=== PATIENT | male | born 1940 | race Caucasian/White ===

== ENCOUNTER 2020-12-20 17:45 | Inpatient (IN) | payer OTHER, MEDICARE ==
[2020-12-20 18:50] LABS: Basophils % 0.5 % (0-1.3); Hematocrit 44.8 % (39.6-49.0); Lymphocytes % 10.5 % (15.3-44.8); MPV 7.6 fL (7.6-11.3); RBC Red Blood Cell Count 4.85 M/uL (4.33-5.43)
[2020-12-20 19:05] LABS: Albumin 3.7 g/dL (3.4-5.0); Bilirubin Direct 0.3 mg/dL (0-0.2); Bilirubin Total 0.9 mg/dL (0.2-1.0); Potassium 3.9 mmol/L (3.5-5.1); Protein, Total 7.2 g/dL (6.4-8.2)
[2020-12-20 19:23] LABS: Urine Bacteria <20 /HPF (NONE SEEN); Urine RBC TNTC /HPF (NONE SEEN)
[2020-12-20] MEDS ORDERED: CEFTRIAXONE/SWI 1gm 1 GM/10 ML SYR ONE (20:23)
[2020-12-20] MEDS ORDERED: NA CHLORIDE 0.9% 50 ML ONE (20:23)
--- NOTE | 2020-12-20 20:45 | ER ---
Nurse's Notes [facility] Name: Tony Vazquez Age: 80 yrs Sex: Male : 1940 Arrival Date: 12/20/2020 Time: 18:16 Bed 5 Private MD: Diagnosis: Hematuria, unspecified;Retention of urine, unspecified;Lower abdominal pain, unspecified Presentation: 12/20 18:18 Chief complaint: Patient states: Prostate bleeding starting this morning at 0700. Pt kg stated, "I tried to go to the restroom and it started bleeding, this has happened before but lasted a day or two and stopped on its own." Pt was scheduled for prostate sx tomorrow but pt canceled it because he wanted cataract sx done first. Coronavirus screen: Client denies travel out of the [place] in the last 14 days. At this time, unable to obtain information related to travel outside the [place] At this time, the client does not indicate any symptoms associated with coronavirus-19. Ebola Screen: Patient negative for fever greater than or equal to 101.5 degrees Fahrenheit, and additional compatible Ebola Virus Disease symptoms Patient denies exposure to infectious person. Patient denies travel to an Ebola-affected area in the 21 days before illness onset. Initial Sepsis Screen: Does the patient meet any 2 criteria? No. Patient's initial sepsis screen is negative. Does the patient have a suspected source of infection? No. Patient's initial sepsis screen is negative. Risk Assessment: Do you want to hurt yourself or someone else? Patient reports no desire to harm self or others. 18:18 Method Of Arrival: Wheelchair kg 18:18 Acuity: KATHERYN 3 kg 18:18 Onset of symptoms was December 20, 2020 at 07:00. kg Triage Assessment: 18:24 General: Appears in no apparent distress. Behavior is calm, cooperative, appropriate kg for age, quiet. Pain: Denies pain. Historical: - Allergies: 18:24 No Known Allergies; kg - Home Meds: 18:24 Flomax Oral [Active]; Furosemide Oral [Active]; kg - PMHx: 18:24 Atrial Fib; protaste enlargement; kg - PSHx: 18:24 hernia; zain shoulder sx; Right ankle SX; Greenlight laser prostatectomy; kg - Immunization history:: Adult Immunizations not up to date, Client reports receiving the 1st dose of the Covid vaccine, September 2020 [employer]. Pt stated he had a reaction and didn't get the second dose. . - Social history:: Smoking status: Patient denies any tobacco usage or history of. Patient uses alcohol, on a daily basis. Screenin:05 Abuse screen: Denies threats or abuse. Nutritional screening: No deficits noted. em Tuberculosis screening: No symptoms or risk factors identified. Fall Risk None identified. Assessment: 19:30 General: Appears in no apparent distress. uncomfortable, Behavior is calm, cooperative, em appropriate for age. Pain: Complains of pain in suprapubic area Quality of pain is described as pressure. Neuro: Level of Consciousness is awake, alert, obeys commands, Oriented to person, place, time, situation, Appropriate for age. Cardiovascular: Capillary refill < 3 seconds Patient's skin is warm and dry. Respiratory: Airway is patent Respiratory effort is even, unlabored, Respiratory pattern is regular, symmetrical. : Reports inability to void, blood in urine. Derm: Skin is intact, is fragile, is thin, Skin is pink, warm \\T\\ dry. Musculoskeletal: Capillary refill < 3 seconds, Range of motion: intact in all extremities. 21:57 Reassessment: Patient appears in no apparent distress at this time. Patient and/or em family updated on plan of care and expected duration. Pain level reassessed. Patient is alert, oriented x 3, equal unlabored respirations, skin warm/dry/pink. Patient states feeling better. Patient states symptoms have improved. 12/21 00:00 Reassessment: Patient appears in no apparent distress at this time. Patient and/or em family updated on plan of care and expected duration. Pain level reassessed. Patient is alert, oriented x 3, equal unlabored respirations, skin warm/dry/pink. Patient denies pain at this time. Patient states feeling better. Vital Signs: 12/20 18:18 BP 143 / 85; Pulse 100; Resp 20; Pulse Ox 98% on R/A; Weight 95.25 kg (R); Height 6 ft. kg 0 in. (182.88 cm); Pain 0/10; 21:57 BP 130 / 79; Pulse 87; Resp 18; Pulse Ox 99% on R/A; Pain 0/10; em 23:00 BP 130 / 75; Pulse 84; Resp 16; Pulse Ox 99% on R/A; em 18:18 Body Mass Index 28.48 (95.25 kg, 182.88 cm) kg ED Course: 18:16 Patient arrived in ED. ds1 18:24 Triage completed. kg 18:24 Arm band placed on left wrist. kg 18:45 Initial lab(s) drawn, by nd, sent to lab. Urine collected: clean catch specimen, blood kj1 tinged. Inserted saline lock: 20 gauge in right antecubital area, using aseptic technique. Blood collected. 19:05 Patient has correct armband on for positive identification. Placed in gown. Bed in low em position. Call light in reach. Side rails up X2. Pulse ox on. NIBP on. 19:21 Rodrigue Wiseman MD is Attending Physician. [facility] 19:23 Bladder scan completed. 704 post-void. em 19:39 Brayan Guevara, RN is Primary Nurse. em 20:43 Fred Mcclain MD is Hospitalizing Provider. [facility] 21:00 3-way catheter inserted, using sterile technique, 22 Fr. Specimen obtained. 12/21 01:18 No provider procedures requiring assistance completed. Patient admitted, IV remains in em place. Administered Medications: 12/20 20:15 Drug: Rocephin (cefTRIAXone) 1 grams Route: IV; Rate: per protocol; Site: right em antecubital; Outcome: 20:44 Decision to Hospitalize by Provider. [facility] 12/21 01:18 Admitted to ER Hold. Please see [facility] for further documentation. em Condition: improved Instructed on the need for admit, Demonstrated understanding of instructions. 16:07 Patient left the ED. zb Signatures: Rodrigue Wiseman MD MD cha Munoz, Edgar, RN RN Beena Magana ds1 Noreen Michael kj1 Gudelia Luna RN RN zb Aimee Peguero RN RN kg
--- NOTE | 2020-12-20 20:45 | EDPHYS ---
Physician Documentation [facility] Name: Tony Vazquez Age: 80 yrs Sex: Male : 1940 Arrival Date: 12/20/2020 Time: 18:16 Bed 5 Private MD: YIN Physician Rodrigue Wiseman HPI: 12/20 20:33 This 80 yrs old Male presents to ER via Wheelchair with complaints of gross pattie hematuria. 20:33 The patient presents with urinary symptoms, urinary frequency. Onset: The pattie symptoms/episode began/occurred this morning. Modifying factors: The symptoms are alleviated by nothing, the symptoms are aggravated by nothing. Associated signs and symptoms: Pertinent positives: hematuria. Severity of symptoms: At their worst the symptoms were moderate, in the emergency department the symptoms are unchanged. The patient has experienced similar episodes in the past, several times. Historical: - Allergies: 18:24 No Known Allergies; kg - Home Meds: 18:24 Flomax Oral [Active]; Furosemide Oral [Active]; kg - PMHx: 18:24 Atrial Fib; protaste enlargement; kg - PSHx: 18:24 hernia; zain shoulder sx; Right ankle SX; Greenlight laser prostatectomy; kg - Immunization history:: Adult Immunizations not up to date, Client reports receiving the 1st dose of the Covid vaccine, September 2020 [employer]. Pt stated he had a reaction and didn't get the second dose. . - Social history:: Smoking status: Patient denies any tobacco usage or history of. Patient uses alcohol, on a daily basis. ROS: 20:34 Constitutional: Negative for fever, chills, and weight loss, Eyes: Negative for injury, pattie pain, redness, and discharge, ENT: Negative for injury, pain, and discharge, Neck: Negative for injury, pain, and swelling, Cardiovascular: Negative for chest pain, palpitations, and edema, Respiratory: Negative for shortness of breath, cough, wheezing, and pleuritic chest pain, Back: Negative for injury and pain, MS/Extremity: Negative for injury and deformity, Skin: Negative for injury, rash, and discoloration, Neuro: Negative for headache, weakness, numbness, tingling, and seizure, Psych: Negative for depression, anxiety, suicide ideation, homicidal ideation, and hallucinations, Allergy/Immunology: Negative for hives, rash, and allergies, Endocrine: Negative for neck swelling, polydipsia, polyuria, polyphagia, and marked weight changes, Hematologic/Lymphatic: Negative for swollen nodes, abnormal bleeding, and unusual bruising. 20:34 Abdomen/GI: Positive for abdominal pain, of the suprapubic area. Exam: 20:34 Constitutional: This is a well developed, well nourished patient who is awake, alert, pattie and in no acute distress. Head/Face: Normocephalic, atraumatic. Eyes: Pupils equal round and reactive to light, extra-ocular motions intact. Lids and lashes normal. Conjunctiva and sclera are non-icteric and not injected. Cornea within normal limits. Periorbital areas with no swelling, redness, or edema. ENT: Nares patent. No nasal discharge, no septal abnormalities noted. Tympanic membranes are normal and external auditory canals are clear. Oropharynx with no redness, swelling, or masses, exudates, or evidence of obstruction, uvula midline. Mucous membranes moist. Neck: Trachea midline, no thyromegaly or masses palpated, and no cervical lymphadenopathy. Supple, full range of motion without nuchal rigidity, or vertebral point tenderness. No Meningismus. Chest/axilla: Normal chest wall appearance and motion. Nontender with no deformity. No lesions are appreciated. Cardiovascular: Regular rate and rhythm with a normal S1 and S2. No gallops, murmurs, or rubs. Normal PMI, no JVD. No pulse deficits. Respiratory: Lungs have equal breath sounds bilaterally, clear to auscultation and percussion. No rales, rhonchi or wheezes noted. No increased work of breathing, no retractions or nasal flaring. Back: No spinal tenderness. No costovertebral tenderness. Full range of motion. Skin: Warm, dry with normal turgor. Normal color with no rashes, no lesions, and no evidence of cellulitis. MS/ Extremity: Pulses equal, no cyanosis. Neurovascular intact. Full, normal range of motion. Neuro: Awake and alert, GCS 15, oriented to person, place, time, and situation. Cranial nerves II-XII grossly intact. Motor strength 5/5 in all extremities. Sensory grossly intact. Cerebellar exam normal. Normal gait. Psych: Awake, alert, with orientation to person, place and time. Behavior, mood, and affect are within normal limits. 20:34 Abdomen/GI: Inspection: distension, that is mild, Bowel sounds: normal, Palpation: nontender, Liver: no appreciated palpable abnormalities, Hernia: not appreciated. 22:01 ECG was reviewed by the Attending Physician. [facility] Vital Signs: 18:18 BP 143 / 85; Pulse 100; Resp 20; Pulse Ox 98% on R/A; Weight 95.25 kg (R); Height 6 ft. kg 0 in. (182.88 cm); Pain 0/10; 21:57 BP 130 / 79; Pulse 87; Resp 18; Pulse Ox 99% on R/A; Pain 0/10; em 23:00 BP 130 / 75; Pulse 84; Resp 16; Pulse Ox 99% on R/A; em 18:18 Body Mass Index 28.48 (95.25 kg, 182.88 cm) kg MDM: 19:21 Patient medically screened. [facility] 20:42 Differential diagnosis: UTI, urinary retention, catheter problem. Data reviewed: [facility] vital signs, nurses notes, lab test result(s), EKG, radiologic studies, plain films. Data interpreted: chief orthoptist: rate is 100 beats/min, rhythm is regular. Test interpretation: by ED physician or midlevel provider: ECG, plain radiologic studies. Counseling: I had a detailed discussion with the patient and/or guardian regarding: the historical points, exam findings, and any diagnostic results supporting the discharge/admit diagnosis, lab results, radiology results. 12/20 18:30 Order name: Basic Metabolic Panel; Complete Time: 19:41 kg 12/20 18:30 Order name: CBC with Diff; Complete Time: 19:41 kg 12/20 18:30 Order name: Hepatic Function; Complete Time: 19:41 kg 12/20 18:30 Order name: Lipase; Complete Time: 19:41 kg 12/20 18:30 Order name: Type And Screen; Complete Time: 19:41 kg 12/20 18:47 Order name: Urine Culture bd 12/20 18:47 Order name: Urine Microscopic Only; Complete Time: 19:41 bd 12/20 20:26 Order name: ABO/RH no charge EDMS 12/20 20:55 Order name: Basic Metabolic Panel EDMS 12/20 20:55 Order name: Basic Metabolic Panel EDMS 12/20 20:55 Order name: CBC with Automated Diff EDID 12/20 20:55 Order name: CBC with Automated Diff EDID 12/20 20:56 Order name: COVID-19 : Document "Date of Symptom Onset" if Symptomatic. [facility] 12/20 23:41 Order name: SARS-COV-2 RT PCR EDID 12/20 18:30 Order name: IV Saline Lock; Complete Time: 18:50 kg 12/20 18:30 Order name: Labs collected and sent; Complete Time: 18:50 kg 12/20 19:44 Order name: Bladder Scanner; Complete Time: 20:15 [facility] 12/20 20:26 Order name: : [address]; Complete Time: 21:04 [facility] 12/20 20:55 Order name: CONS Physician Consult EDID 12/20 20:56 Order name: EKG; Complete Time: 20:56 [facility] 12/20 20:56 Order name: EKG - Nurse/Tech; Complete Time: 21:55 [facility] EC:01 Rate is 84 beats/min. Rhythm is regular. QRS [place] is Normal. NM interval is normal. QRS pattie interval is normal. QT interval is normal. No Q waves. T waves are Normal. No ST changes noted. Clinical impression: Normal ECG and No evidence of ischemia. Interpreted by me. Reviewed by me. Administered Medications: 20:15 Drug: Rocephin (cefTRIAXone) 1 grams Route: IV; Rate: per protocol; Site: right em antecubital; Disposition Summary: 12/20/20 20:44 Hospitalization Ordered Hospitalization Status: Observation pattie Provider: Fred Mcclain cha Condition: Stable ptatie Problem: new pattie Symptoms: have improved pattie Bed/Room Type: Standard pattie Location: Telemetry/MedSurg (observation)(12/21/20 12:10) bd Room Assignment: 222(12/21/20 12:10) bd Diagnosis - Hematuria, unspecified pattie - Retention of urine, unspecified pattie - Lower abdominal pain, unspecified pattie Forms: - Medication Reconciliation Form pattie - SBAR form pattie Signatures: Dispatcher [employer] EDShanel Enrique Corey, MD MD cha Munoz, Edgar RN Simin Nunez RN RN cg Graham, Kristen, RN RN kg Corrections: (The following items were deleted from the chart) 20:26 20:11 ordered. pattie pattie 22:53 20:44 Telemetry/MedSurg (observation) [facility] 20:44 [facility] 12/21 12:10 12/20 22:53 [facility] bd 12/21 12:12/20 22:53 [facility]
[2020-12-20] MEDS ORDERED: LIDOCAINE VISCOUS 2% SOLN 15 ML UDC ONE (20:48)
[2020-12-20] MEDS ORDERED: ONDANSETRON 4 MG/2 ML VIAL IV PRN (20:53)
[2020-12-20] MEDS ORDERED: ACETAMINOPHEN 500 MG TAB PO PRN (20:53)
[2020-12-20] MEDS ORDERED: MORPHINE 2 MG/ML SYR IV PRN (20:53)
[2020-12-20] MEDS ORDERED: CEFTRIAXONE 1 GM/NS 50 ML 1 GM/50 ML BAG IV SCH (21:00)
[2020-12-20] MEDS: FAMOTIDINE 20 MG/2 ML VIAL IV SCH (21:00)
[2020-12-20] MEDS: NA CHLORIDE 0.9% 1,000 ML IV SCH (21:00)
[2020-12-20] MEDS ORDERED: NACL 0.9% IRR SOLN 2,000 ML IRR ONE (21:09)
[2020-12-20] MEDS: CEFTRIAXONE/SWI 1gm 1 GM/10 ML SYR IV SCH (22:00)
[2020-12-20] MEDS ORDERED: NACL 0.9% IRR SOLN 4,000 ML IRR ONE (22:36)
[2020-12-21] MEDS ORDERED: NA CHLORIDE 0.9% 1,000 ML ONE (04:23)
[2020-12-21 04:32] LABS: Absolute Lymphocytes (CBC) 1.3 K/uL (0.7-4.9); Basophils % 0.3 % (0-1.3); Hematocrit 41.2 % (39.6-49.0); Lymphocytes % 16.4 % (15.3-44.8); MPV 7.6 fL (7.6-11.3); RBC Red Blood Cell Count 4.42 M/uL (4.33-5.43)
[2020-12-21 04:41] LABS: Potassium 3.8 mmol/L (3.5-5.1)
[2020-12-21 05:11] VITALS: BMI 28.5
[2020-12-21] MEDS: NA CHLORIDE 0.9% 1,000 ML IV SCH ×2 (07:00→16:43)
--- NOTE | 2020-12-21 07:31 | EKG ---
Test Date: 2020-12-20 Test Time: 21:18:19 Medical Research Tech: MARY MEASUREMENT RESULTS: Intervals: Rate: 84 LA: 182 QRSD: 86 QT: 386 QTc: 456 [place]: P: 32 LA: 182 QRS: 16 T: 48 INTERPRETIVE STATEMENTS: Normal sinus rhythm Normal ECG Compared to ECG 12/12/2020 10:56:49 No significant changes Electronically Signed On 12-21-20 07:30:57 CDT by Cecil Zepeda
[2020-12-21] MEDS ORDERED: NACL 0.9% IRR SOLN 0 ML IRR ONE (07:41)
[2020-12-21] MEDS: FAMOTIDINE 20 MG/2 ML VIAL IV SCH ×2 (09:00→21:33)
[2020-12-21] MEDS: CEFTRIAXONE/SWI 1gm 1 GM/10 ML SYR IV SCH ×2 (09:00→21:33)
[2020-12-21] MEDS ORDERED: NACL 0.9% IRR SOLN 2,000 ML IRR ONE ×4 (09:48→15:20)
[2020-12-21] MEDS ORDERED: CEFTRIAXONE/SWI 1gm 1 GM/10 ML SYR ONE (11:08)
[2020-12-21] MEDS ORDERED: FAMOTIDINE 20 MG/2 ML VIAL IV ONE (11:08)
--- NOTE | 2020-12-21 16:06 | CON ---
Reason For Consultation: Gross hematuria and urinary retention. History Of Present Illness: Mr. Vazquez is an 80-year-old gentleman with no documented significant past medical history, who underwent GreenLight photovaporization of his prostate by Dr. Tran several years ago, complicated at that time by bleeding, who now presents with persistent obstructive lower urinary symptoms, presumptively due to BPH, large volume, incomplete emptying of his bladder associated with left-sided hydronephrosis and intermittent gross hematuria without upper tract urothelial lesions seen on imaging or bladder tumor on outpatient cystoscopy. I had previously recommended he undergo bipolar transurethral resection of his prostate to manage the likely prostatic source of the bleeding, but also left retrograde pyelography and possible stent placement to manage the hydronephrosis, but because the patient had other plans as it relates to management of a cataract and some other social family issues, he canceled his surgery scheduled yesterday, 12/20/2020. Instead, he ended up with gross hematuria and clot retention that took him to the emergency department yesterday where a 22-Welsh 3-way catheter was placed. I was thus consulted to evaluate and manage the patient's gross hematuria and clot retention. On evaluation, the patient was well appearing and in no acute distress. He had no dyspnea or signs of respiratory distress. He was lying in the bed comfortably and a urethral catheter was in place with CBI with single lead tubing was attached, but was not actively dripping in due to obstruction of the infusion port of the catheter. As a result, I did the following procedure: Copious bladder irrigation Procedure note: I disconnected the catheter from its drainage tubing and then irrigated his bladder with over 2 L of normal saline until the majority of clots had been removed and returning efflux of urine was light pink to clear. I then flushed the infusion port site and removed the clot contained there. I then restored his continuous bladder irrigation with normal saline and set it up so that it remained light pink with moderate drip CBI. The patient was slated for transfer or inpatient management. Assessment And Recommendations: This is an 80-year-old gentleman with no known significant past medical history, who underwent GreenLight photovaporization of his prostate by Dr. Tran years ago complicated by bleeding at the time of that procedure, now with intermittent gross hematuria, clot retention, persistent obstructive lower urinary tract symptoms due to benign prostatic hypertrophy, and large volume incomplete emptying of his bladder associated with left-sided hydronephrosis and no upper tract urothelial lesions seen on imaging or bladder tumor on outpatient cystoscopy. -I recommend serial monitoring of his hematocrit at least once every 24 hours depending on the degree of gross hematuria. - I specifically explained and counseled the nurses in the emergency department about the need for maintaining continuous bladder irrigation with normal saline to prevent recurrence of clot related obstruction or distention of the bladder that could result in rupture. -Recommend IV antimicrobial therapy with ceftriaxone while urine culture, which hopefully was sent on his admission to the emergency department yesterday, is pending. Regardless, this will be of efficacy given the significant quantity of irrigation required to prevent infectious complication. - Continue CBI and attempt to wean. I will follow and if we are unable to appropriately wean the CBI off, the patient would then be arranged for urgent/emergent operative evaluation. Otherwise, we will plan to discharge him and get him back scheduled in the operating room as soon as possible for bipolar TURP and left retrograde pyelography, possible stent placement. Please note the time required for this consultation was over 50 minutes. CRISTINO/ANGELINA Voice ID: [id number] Report ID: [id number] BRANDYN
[2020-12-21] MEDS ORDERED: NACL 0.9% IRR SOLN 4,000 ML IRR ONE ×3 (16:22→22:31)
--- NOTE | 2020-12-21 19:42 | PN ---
Subjective: This is a followup consultation on the patient, well known to me with gross hematuria an d clot urinary retention requiring CBI. Please see prior consultation note for full recommendations. I reassessed the patient this evening and the CBI was at slow to moderate drip with urine from pink to light pink. The catheter was draining well without any signs of obstruction. The patient was co mpletely comfortable and feeling much better now than he was earlier. CBI titrated to keep the urine light pink. Recommendations: Nursing may manually irrigate the catheter with 60 mL catheter tip syringe and norm al saline q.4 hours and p.r.n. to remove any clots that may occur and form within the bladder and pot entially obstruct the catheter. Otherwise, continue to wean CBI to keep urine light pink to clear an d we will attempt to discontinue CBI as soon as possible, hopefully tomorrow. CRISTINO/ANGELINA Voice ID: [id number] Report ID: [id number]
--- NOTE | 2020-12-21 19:49 | HP ---
Date of Admission: 12/20/2020 Chief Complaint: Blood in urine. History Of Present Illness: An 80-year-old male patient, who started to have gross hematuria yesterd ay and this is painless hematuria. There is no burning on urination, no flank pain. He had some sup rapubic discomfort because he was not able to void for a while with this gross hematuria and once the catheter was placed in the emergency room and he started draining urine, his suprapubic discomfort g ot resolved. He denies any fever, chills, nausea, vomiting. After he was evaluated, he was admitted to the hospital. I saw him this morning. His son was present with him at bedside. Allergies: NO KNOWN ALLERGIES. Medications: Finasteride 5 mg daily and tamsulosin 0.4 mg daily. Review of Systems: Genitourinary: As mentioned above. All other systems reviewed and negative. Past Medical History: The patient had COVID-19 infection in April 19, 2020, gastroesophageal reflu x disease, benign prostatic hypertrophy, lumbar spondylosis, and prior history of gross hematuria few time and last episode was in June of this year. The patient also has chronic hydronephrosis of the left side and he has been under care of Dr. Camargo recently, who is planning to do surgery on . Past Surgical History: Significant for inguinal hernia repair and had a GreenLight procedure done on prostate for enlarged prostate in 2008, shoulder surgery, ankle surgery. Family History: Father at age 90 with old age and mother also at age 90 and had dementia. Social History: Prior history of smoking, not at present time. Use of alcohol 1 or 2 beers a few ti mes a week. Physical Examination: Vital Signs: Temperature 98.6, pulse 85, respiratory rate 16, blood pressure 132/78, oxygen saturati on 96%. Height 6 feet, weight 210 pounds. General: Awake, alert, oriented, not in distress. HEENT: Head atraumatic, normocephalic. Conjunctivae nonerythematous. Sclerae white. Mouth, no thr ush or edema noted. Ears/Nose, no mass, lesion, discharge noted. Neck: Supple. No JVD, lymph nodes, bruit, thyromegaly noted. Lungs: Bilateral good equal air entry. Clear to auscultation. No rhonchi. No rales. Heart: Normal heart sounds, no murmur or gallop. Abdomen: Soft, bowel sounds normal. No guarding, rigidity, tenderness, mass, hepatosplenomegaly, dis tention, or bruit noted. Extremities: No leg edema. No calf tenderness. Skin: No rash, ulcer, cellulitis. Lymphatics: No lymph node enlargement in neck, supraclavicular, infraclavicular region. Neuro: No focal neurological deficit. Chest: Unremarkable. External Genitalia: Deferred. Rectal: Deferred. Genitourinary: The patient has a catheter in place, draining grossly hemorrhagic urine in the F oley catheter bag. Laboratory Data: White count yesterday was 9.5, hemoglobin 15.3, platelets 151. This morning; white count 8.1, hemoglobin 14. Yesterday; sodium 132, potassium 3.9, chloride 98, bicarb 22, BUN 13, cre atinine 0.82, glucose 87. Liver function tests unremarkable. Lipase 77. This morning; sodium 140, potassium 3.8, chloride 107, bicarb 28, BUN 15, creatinine 0.86, glucose 90. Urinalysis, RBC TNTC, b acteria less than 20, WBC less than 5. COVID-19 test negative. EKG; normal sinus rhythm, no acute S T-T changes. Impression: 1.Gross hematuria. 2. . 3.Left-sided hydronephrosis, chronic. 4. . Plan: We will admit the patient to hospital for further evaluation and management of this problem. The patient is appropriate for inpatient and is expected to spend 2 midnights in hospital. We will c ontinue empiric antibiotic, continue bladder irrigation per order, and SCD was ordered for DVT prophy laxis. We will consult the patient's urologist, Dr. Velazquez, who was notified by ER physician eleanor harley and I also talked to him today and details were discussed with him. I will see the patient tomor row for followup and further plan . GAIL/MODL Voice ID: [id number]
[2020-12-22] MEDS: SODIUM CHL 0.9% IRR SOLN 2000 ML IRR SCH (00:44)
[2020-12-22] MEDS: NA CHLORIDE 0.9% 1,000 ML IV SCH ×2 (03:10→07:07)
[2020-12-22 08:16] LABS: Absolute Lymphocytes (CBC) 1.2 K/uL (0.7-4.9); Basophils % 0.4 % (0-1.3); Lymphocytes % 13.9 % (15.3-44.8); MPV 7.5 fL (7.6-11.3); RBC Red Blood Cell Count 3.63 M/uL (4.33-5.43)
[2020-12-22 08:30] LABS: BUN Blood Urea Nitrogen 10 mg/dL (7-18); Bicarbonate 25 mmol/L (21-32); Glucose Level 99 mg/dL (74-106); Magnesium 2.1 mg/dL (1.8-2.4); Potassium 3.8 mmol/L (3.5-5.1); Sodium Level 141 mmol/L (136-145)
[2020-12-22] MEDS: FAMOTIDINE 20 MG/2 ML VIAL IV SCH ×2 (08:30→21:04)
[2020-12-22] MEDS: CEFTRIAXONE/SWI 1gm 1 GM/10 ML SYR IV SCH ×2 (08:30→21:04)
[2020-12-22] MEDS ORDERED: CODEINE 30MG/APAP 300MG TAB PO PRN (21:01)
--- NOTE | 2020-12-23 01:03 | PN ---
Date of Progress Note: 12/22/2020 Subjective: The patient was seen this morning for followup. No new complaints or problems reported by him. Lying in bed, not in distress. Objective: Vital Signs: Reviewed. HEENT: Examination unremarkable. Lungs: Clear to auscultation. Heart: Sounds normal. Abdomen: Soft. Bowel sounds normal. No guarding, rigidity, tenderness, or distention. Extremities: No leg edema. Laboratory Data: Urine culture result is pending. Impression: 1.Gross hematuria. 2.Benign prostatic hypertrophy. 3.Chronic left-sided hydronephrosis. Plan: We will go ahead. Continue current empiric antibiotic, which is ceftriaxone. Reduce IV fluid to 50 cc/hour. The patient is on continuous bladder irrigation. We will continue that treatment pe greg Camargo and continue to follow up with him. We will repeat blood work tomorrow morning, and I will see him tomorrow for followup. GAIL/MODL Voice ID: [id number] Report ID: [id number]
[2020-12-23 05:31] LABS: Absolute Lymphocytes (CBC) 1.8 K/uL (0.7-4.9); Basophils % 0.9 % (0-1.3); Hematocrit 35.2 % (39.6-49.0); Lymphocytes % 20.3 % (15.3-44.8); MPV 7.7 fL (7.6-11.3); RBC Red Blood Cell Count 3.75 M/uL (4.33-5.43)
[2020-12-23 05:47] LABS: BUN Blood Urea Nitrogen 9 mg/dL (7-18); Bicarbonate 25 mmol/L (21-32); Glucose Level 101 mg/dL (74-106); Magnesium 2.2 mg/dL (1.8-2.4); Potassium 3.8 mmol/L (3.5-5.1); Sodium Level 142 mmol/L (136-145)
[2020-12-23] MEDS: NA CHLORIDE 0.9% 1,000 ML IV SCH (06:13)
[2020-12-23] MEDS: CEFTRIAXONE/SWI 1gm 1 GM/10 ML SYR IV SCH ×2 (09:44→21:26)
[2020-12-23] MEDS: FAMOTIDINE 20 MG/2 ML VIAL IV SCH ×2 (09:44→21:26)
--- NOTE | 2020-12-23 09:52 | P.PN ---
Subjective Date of Service: 12/22/20 Chief Complaint: persistent gross hematuria Subjective: Improving Physical Examination - Vital Signs Temperature: 97.9 F Blood Pressure: 147/71 Pulse: 76 Respirations: 17 Pulse Ox (%): 99 - Physical Exam General: Alert, In no apparent distress, Oriented x3, Cooperative Other Physical/Emotional Findings: Urine pink and CBI very slowly dripping in. Bladder irrigation Procedure Note: I then held the CBI infusion, and then utili zed a 60cc catheter tipped syringe to flush and aspirate about 60cc of clot from within his bladder. I continued to irrigate his bladder for another 750-1000cc with NS until no additional clots were obtained. I then placed the catheter back to CBI with NS at slow-moderate drip, and I placed the catheter to gentle traction for 1 hour with instructions provided to nursing at bedside. - Studies Microbiology Data (last 24 hrs): 12/20/20 18:45 Clean Catch Urine [place] Count - Final BETWEEN 10,000 & 100,000 CFU/ML 12/20/20 18:45 Clean Catch Urine - Final MIXED SERGEI. Assessment And Plan - Current Problems (Diagnosis) (1) Gross hematuria Current Visit: Yes Status: Acute (2) Urinary retention Onset Date: 11/18/15 Current Visit: No Status: Acute - Plan Continue CBI NS to keep urine light pink to clear. It is improving. Leave catheter to traction x 1 hour, then take down and place to [employer] (communicated to nursing). Continue Cetriaxone IV abx ppx. Wean CBI as tolerated. Serial Hct. If persistent worsening of anemia or inability to stop CBI, urgent operative management will be planned.
[2020-12-23] MEDS: SODIUM CHL 0.9% IRR SOLN 2000 ML IRR SCH ×2 (18:09→22:00)
--- NOTE | 2020-12-23 19:56 | PN ---
Date of Progress Note: 12/23/2020 Subjective: The patient was seen this morning for followup. No new complaints or problems reported by patient, lying in bed not in distress. He has some shoulder pain, which is chronic and had increa sed pain yesterday, so requested some stronger pain medication as Tylenol did not help and after he t ook a dose of Tylenol with codeine pain got better. Objective: Vital signs: Reviewed. HEENT: Unremarkable. Lungs: Clear to auscultation. Heart: Sounds normal. Abdomen: Soft, bowel sounds normal. No guarding, rigidity, tenderness, distention. Extremities: No leg edema. Laboratory Data: White count 8.8, hemoglobin 12.1, platelets . Sodium 142, potassium 3.8, chloride 113, bicarb 25, BUN 9, creatinine 0.75, glucose 101, magnesium . Urine culture n egative. Impression: 1.Gross hematuria. 2.Benign prostatic hypertrophy, symptomatic. 3.Chronic left-sided hydronephrosis. 4.Osteoarthritis, multiple sites. Plan: We will go ahead and continue current medication. Patient has a catheter with continuou s bladder irrigation going on and his urine is still hemorrhagic, but overall it is better today comp ared to yesterday. During the course of today, he did have problem because of the blood clot in the urine. His urinary flow got obstructed and he did require manual irrigation and obtained approximate ly 600 cc of urine after that. We will continue this bladder irrigation per Dr. Camargo and we will continue to follow up with him for further management of this problem and I will see him tomorrow for followup. GAIL/MODL Voice ID: [id number] Report ID: [id number]
[2020-12-23] MEDS: ACETAMINOPHEN 325 MG TABLET PO PRN (21:53)
[2020-12-24] MEDS: NA CHLORIDE 0.9% 1,000 ML IV SCH (02:04)
[2020-12-24] MEDS: SODIUM CHL 0.9% IRR SOLN 2000 ML IRR SCH ×3 (02:07→10:29)
[2020-12-24] MEDS: CEFTRIAXONE/SWI 1gm 1 GM/10 ML SYR IV SCH ×2 (10:31→21:00)
[2020-12-24] MEDS: FAMOTIDINE 20 MG/2 ML VIAL IV SCH ×2 (10:31→23:05)
[2020-12-24] MEDS ORDERED: LIDOCAINE JELLY 2% 5 ML SYRINGE TOP ONE (13:00)
--- NOTE | 2020-12-24 13:55 | P.PN ---
Date of Service: 12/24/20 Patient seen and examined. During the night, around 4AM, the catheter clogged and he required manual irrigation by nursing. Since then, this morning, the catheter again was presumably plugged, but nurses had a difficult time irrigating the . As such, I recommended they remove the catheter and allow him the opportunity to void. When I saw him, he was up and moving around but stating he had only voided a few drops of bloody fluid. As a result, I recommended we replace the with a 24Fr 3-way and resume CBI in preparation for operative intervention today. Urethral catheter placement and Bladder irrigation Procedure Note: I placed the patient supine in the examination bed and prepped his genitalia with [place], draping it per routine. A Lidocaine Urojet was applied intraurethrally for local anesthesia. I then placed a 24Fr 3-way catheter into his bladder with ease, and there was immediate efflux of perhaps 200cc of light pink to siva colored urine. I then irrigated the with 500cc NS, but I only removed a few, small, formed clots. The catheter did require some pulling against the prostate in order to irrigate, because I placed 30cc in the balloon and likely because the bladder was collapsed around the tip of the . But despite aggressive irrigation, only minimal light pink fluid was obtained with minimal formed clot only. As such, I reconnected the CBI to NS, and titrated it to slow drip with the urine completely clear. I counseled the patient that if his urine remained bloody, especially clotting off the catheter, and we were unable to wean off the CBI today, we would plan operative intervention this evening, after he had been NPO for 8 hours. He last had a full breakfast around 7:30/8AM. However, should we be successful in weaning the CBI over the course of the afternoon, we will observe him overnight for recurrence of the bleeding, but if the urine remains reasonably clear off CBI, we will discharge him to home with the catheter in place. We will then plan on operative intervention, likely Saturday. Over 45 minutes face to face time spent in discussion with the patient in addition to the procedural manipulation above. -PSA pending as a send out test in the EMR. I explained this was necessary to assess the potential for prostate cancer underlying his presumptive prostatic urethral hematuria and outlet obstruction.
--- NOTE | 2020-12-24 14:27 | PN ---
Date of Progress Note: 12/24/2020 Subjective: The patient was seen this morning for followup. He was lying in bed, not in distress. Still has catheter with continuous bladder irrigation. Still has grossly hemorrhagic urine whi ch is more or less same as yesterday, but overall better compared to how it was when he first came in to the hospital. He still has blood clots in the urine that tends to cause urinary retention requir ing manual irrigation and that happened 3 times in the last 24 hours as reported by the patient. Las t episode was around 4 a.m. this morning. Each time with blood clot he ends up having urinary retent ion and once the manual irrigation gets done he gets relief from that. He does say that when he gets out of bed and tries to ambulate like going to the bathroom and back and forth, his hematuria tends to get worse at that time. No abdominal pain, nausea, or vomiting. Objective: Vital Signs: Reviewed. HEENT: Unremarkable. Lungs: Clear to auscultation. Heart: Sounds normal. Abdomen: Soft, bowel sounds normal. No guarding, rigidity, tenderness, distention. Extremities: No leg edema. Impression: 1.Gross hematuria. 2.Benign prostatic hypertrophy with lower urinary tract symptoms. 3.Left-sided hydronephrosis, chronic. Plan: We will go ahead and continue continuous bladder irrigation. Continue current empiric antibio tics. Urine culture is negative so far and I did call and discuss details with urologist, Dr. Leon olivares and he will evaluate the patient today. He has requested the patient to stay n.p.o. and then he wi ll decide about appropriate timing for surgical intervention whether to be done later today or tomorrow. I will see him tomorrow for follow up. GAIL/MODL Voice ID: [id number] Report ID: [id number]
[2020-12-24] MEDS: D5 0.9 NS 1,000 ML IV SCH (15:24)
--- NOTE | 2020-12-24 17:59 | P.HP ---
Date of Service: 12/24/20 Preoperative H&P: HPI: 80-year-old gentleman with no known significant past medical history, who underwent GreenLight photovaporization of his prostate by Dr. Tran years ago complicated by bleeding at the time of thatprocedure, now with intermittent gross hematuria, clot retention, persistent obstructive lower urinary tract symptoms due to benign prostatic hypertrophy, and large volume incomplete emptying of his bladder associated with left-sided hydronephrosis and no upper tract urothelial lesions seen on imaging or bladder tumor on outpatient cystoscopy. He was admitted via the ED on 12/20/20 with recurrent gross hematuria and clot retention requiring 3-way catheter and CBI. Despite multiple manual irrigations to manage obstruction of the catheter with clots despite CBI with NS, his urine failed to clear sufficiently for discharge. He has been managed on prophylactic Ceftriaxone, and he had a significant drop in his Hct, though this has stabilized. PMHx: as above PSHx: Greenlight PVP All: NKDA Exam: AVSS AAOx3 in NAD No dyspnea/respiratory distress Abd soft, NT, ND though obese Ambulatory without issue Urethral catheter in place and draining light pink urine on slow-moderate drip CBI EKG: NSR CXR: normal Hgb 12 Cr<1.0 A/P: Gross hematuria, clot urinary retention, BPH with LUTS, left hydronephrosis - operative cysto, clot evac, bipolar TURP, left Retrograde pyelogram, left ureteral stent placement - anticipated discharge tomorrow AM with catheter in place
[2020-12-24] MEDS ORDERED: FENTANYL CITR 100 MCG/2 ML ONE ×2 (18:45→20:07)
[2020-12-24] MEDS ORDERED: propofoL 200 MG/20 ML VIAL IV ONE (18:45)
[2020-12-24] MEDS ORDERED: MIDAZOLAM HCL 2 MG/2 ML INJ ONE (18:45)
[2020-12-24] MEDS ORDERED: LIDOCAINE 1% MPF 5 ML VIAL ONE ×2 (18:45→18:46)
[2020-12-24] MEDS ORDERED: KETOROLAC 30 MG/ML INJ ONE (18:46)
[2020-12-24] MEDS ORDERED: ONDANSETRON 4 MG/2 ML VIAL ONE (18:46)
[2020-12-24] MEDS ORDERED: dexAMETHasone 10 MG/ML VIAL ONE (18:46)
[2020-12-24] MEDS ORDERED: NA CIT/CITRIC AC 30 ML ORAL UDC ONE (18:53)
[2020-12-24] MEDS ORDERED: Ringers Lactate 1,000 ML IV ONE ×2 (18:54→22:07)
[2020-12-24] MEDS ORDERED: Phenylephrine HCl 10 MG/ML 1 ML VIAL ONE (19:20)
[2020-12-24] MEDS ORDERED: EPHEDRINE SULF 50 MG/ML VIAL ONE (19:43)
[2020-12-24] MEDS ORDERED: ALBUMIN HUM 5% 250 ML IV ONE (19:51)
[2020-12-24] MEDS ORDERED: NACL 0.9% IRR ONE (20:13)
[2020-12-24] MEDS ORDERED: IRR IRR ONE (20:13)
[2020-12-24] MEDS ORDERED: NACL 0.9% IRR SOLN 4,000 ML IRR ONE (20:24)
[2020-12-24] MEDS ORDERED: NACL 0.9% IRR SOLN 6,000 ML IRR ONE (20:44)
[2020-12-24] MEDS ORDERED: OPIUM/BELLADONNA SUPPOS (30-16.2 MG) PR ONE ×2 (21:35→21:56)
[2020-12-24] MEDS: HYDROMORPHONE HCL 1 MG/ML INJ ONE ×4 (21:40→21:58)
[2020-12-24] MEDS ORDERED: HYDROMORPHONE HCL 1 MG/ML INJ IV ONE ×5 (21:40→22:05)
[2020-12-24 21:47] LABS: Hematocrit 32.7 % (39.6-49.0)
--- NOTE | 2020-12-24 21:59 | RAD REPORT ---
EXAM DESCRIPTION: RAD - Urethrocystogrphy Retrograde - 12/24/2020 9:40 pm FINDINGS: There were 32 portable fluoroscopic images obtained during fluoroscopic assisted clot jes eboni and irrigation. No suspicious or unexpected finding. Fluoro time was 1 minutes 40 seconds.
[2020-12-24] MEDS ORDERED: HYDROMORPHONE HCL 1 MG/ML INJ ONE (22:26)
--- NOTE | 2020-12-24 23:12 | OP ---
Surgeon: TARUN DELVALLE Preoperative Diagnoses: 1. Gross hematuria. 2. Clot urinary retention. 3. Benign prostatic hyperplasia with lower urinary tract obstruction. 4. Left hydronephrosis. Postoperative Diagnoses: 1. Gross hematuria. 2. Clot urinary retention. 3. Benign prostatic hyperplasia with lower urinary tract obstruction. 4. Left hydronephrosis. 5. 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 Procedures Performed: 1. Cystoscopy and clot evacuation. 2. Left retrograde pyelography and attempted left ureteral stent placement. 3. Transurethral resection and fulguration of the prostate. Indication For Procedure: Mr. Vazquez is an 80-year-old gentleman, who presented to the Urology Clinic with gross hematuria and left hydronephrosis. He was scheduled for operative intervention on Saturday of this past week, but cancelled that procedure and ended up in the Emergency Department with gross hematuria and clot retention. This hematuria and persistent re-obstruction of the catheter due to clots persisted over the course of his admission until I recommended operative management today. As such, he was consented on the inpatient unit where I discussed with him the risks and potential side effects and benefits of the operation before he was then transferred to the holding area of the operative suite. Findings Operatively: I was able to inject contrast retrograde up a sausage left ureter that was markedly tortuous and the contrast would delineate skip portions of the ureter before partially entering the renal pelvis and calyces. I was able to navigate a wire to the level of the left UPJ, but not into the actual pelvis successfully enough to place a stent. Procedure In Detail: The patient was placed supine on the operative table and then in the lithotomy position, padded and secured to the table appropriately. His genitalia were prepped using Hibiclens and he was draped in standard fashion. Pneumo boots had been applied for DVT prophylaxis. The case was begun using a 26-Polish resectoscope and a visual obturator to traverse the urethra and into the bladder. There was significant intravesical clot burden present, so I removed the visual obturator and employed an Ellik evacuator on multiple occasions to remove approximately 500 cc of clot. Once this was done, I was then able to visualize the anterior component of the bladder, which I then surveyed. No papillary mucosal lesions, foreign bodies or stones were noted throughout. The prostate was very massive in its intravesical intrusion and was likely the source of hematuria with only some mild bleeding in the region of the trigone. As a result, I identified the left ureteral orifice and was successfully able to cannulated using the tip of the Sensor wire and a 5-Polish ureteral access catheter. I then using fluoroscopic guidance injected contrast via the 5-Polish ureteral access catheter to perform a retrograde pyelogram. Left retrograde pyelography: Using a 70:30 mixture of Omnipaque and saline, contrast was injected into the distal ureter where it only filled a portion of the distal ureter demonstrated a corkscrew tortuosity from the UVJ upward. As a result, the contrast did not pass beyond the distal component of the ureter. So, I advanced the 5-Polish ureteral access catheter further up the very dilated ureter into a very tortuous mid proximal ureter where I injected additional contrast. Contrast again filled skip portions of the more proximal ureter, but still would not enter the renal pelvis. Additional injection of full-strength contrast was finally able to get a small amount of contrast into some of the mid and lower pole calyces. At this point, I attempted to pass the Sensor wire up the 5-Polish ureteral access catheter and into the renal pelvis. With great difficulty, I alternated between attempting to pass the wire and advancing the 5-Polish ureteral access catheter over it in order to try to pass the wire into the renal pelvis. Despite multiple attempts at this, the wire stopped short of entering the renal pelvis at the putative left UPJ. As a result, I then employed a Super Stiff wire via the 5-Polish ureteral access catheter in an effort to straighten the very tortuous ureter to perhaps make it easier to gain access into the renal pelvis. This unfortunately did not decrease any of the tortuosity of the ureter and so I was unable to pass the Super Stiff wire out of the 5-Polish ureteral access catheter tip where it was present in the mid proximal ureter. So, I then returned to use a Solutoson guidewire and alternated that with the Sensor wire attempting to gain access into the renal pelvis. At one point, I was able to pass just the tip of the Sensor wire about 2 or 3 cm into the medial portion of the renal pelvis, but it would not advance far enough sufficiently to coil within one of the calyces. Despite multiple attempts to further advance the 5-Polish ureteral access catheter over the Sensor wire, it would only cause the entirety of the access to come out of the ureteral orifice and threaten loss of access. As such, I then left the 5-Polish ureteral access catheter in place and then removed the Sensor wire to allow the collecting system perhaps to decompress a bit, which may allow correction of some of the tortuosity to facilitate stent placement. I then left the 5-Polish ureteral access catheter in place and turned my attention to the likely source of bleeding, the massively intraluminally projecting prostate tissue. I then resected the prostate tissue starting at the median lobe and elevated median bar, resecting the tissue down smooth with the level of the bladder neck. I then continued the resection of the entirety of the median bar down to the level of the verumontanum until a smooth trough was created. Fulguration was performed along the way. I then resected the intravesically projecting component of the left lateral lobe extending to the anterior before performing a similar action in the right lateral lobe extending to the anterior. Additional resection as necessary was taken for the mid component of the prostatic urethra extending to the apex, which was largely untouched. Significant prostate tissue was resected and then extensive fulguration was performed in order to achieve hemostasis. All prostate chips were Ellik evacuated from the bladder and the prior blood clot was sent as 1 pathologic specimen with the prostate chips sent as the second specimen. The blood clots were merely sent for identification purposes and perhaps weight measurement. The prostate chips will be sent for microscopic analysis to assess the potential for prostate cancer underlying this prostatic urethral bleeding. After additional extensive fulguration, I then removed the resectoscope and return to the 5-Polish ureteral access catheter, which remained insitu with the tip of the catheter in the mid proximal ureter. At this point, because some of the 5-Polish ureteral access catheter was displaced into the bladder lumen, I attempted to pass the Sensor wire up the 5-Polish ureteral access catheter and into the collecting system, unfortunately, this caused the 5-Polish ureteral access catheter to dislodge, and I was unable to advance the wire ultimately losing access. Attempts at that point via backloaded cystoscope to regain access into the ureteral orifice were thwarted due to the heaped up nature of the orifice; so, ultimately, I was unable to place a left ureteral stent. As a result, attempts at further stenting were discontinued, and I left his bladder full of saline before passing a 24-Polish 3-way catheter into his bladder with ease. I placed 30 cc of sterile water into the balloon, and then the patient was taken out of the lithotomy position after I irrigated the catheter confirming there was no significant ongoing hematuria or tissue obstructing it. I then placed the catheter to moderate traction on his left lower thigh and returned the CBI to slow drip where the urine was light pink. The patient was then awakened from general anesthesia, transferred to a stretcher, and then transferred to the recovery room in good condition. Complications: None. 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 Tran also had some issue with the kidney. We will await pathologic analysis of the prostate tissue obtained, and we will arrange a voiding trial for the patient in the Urology Clinic in 3-5 days or on Saturday or of this coming week in the clinic with nurse practitioner, Lulú. The patient may be discharged home tomorrow with Bactrim Double Strength tablets twice daily for 5 days until the catheter is removed if the urine is appropriately without clot related obstruction. CRISTINO/ANGELINA Voice ID: [id number] Report ID: [id number] MTDD
[2020-12-25] MEDS ORDERED: NA CHLORIDE 0.9% 4,000 ML ONE (01:49)
[2020-12-25] MEDS: D5 0.9 NS 1,000 ML IV SCH ×2 (05:18→15:24)
[2020-12-25] MEDS: SMZ./TMP. 800/160 MG TABLET PO SCH ×2 (08:51→21:04)
[2020-12-25] MEDS: FAMOTIDINE 20 MG/2 ML VIAL IV SCH ×2 (08:52→21:04)
[2020-12-25 11:32] LABS: Hematocrit 29.6 % (39.6-49.0); MPV 7.4 fL (7.6-11.3); RBC Red Blood Cell Count 3.13 M/uL (4.33-5.43)
[2020-12-25 11:33] LABS: Basophils % 0.9 % (0-1.3); Lymphocytes % 9.6 % (15.3-44.8)
[2020-12-25] MEDS: OPIUM/BELLADONNA SUPPOS (30-16.2 MG) PR SCH ×2 (12:24→21:05)
[2020-12-25 12:42] LABS: Blood Morphology Comment NOT SEEN (NOT SEEN); Platelet Estimate ADEQ; White Blood Cell Scan OK (OK)
--- NOTE | 2020-12-25 13:41 | P.PN ---
Date of Service: 12/25/20 Patient seen and examined. He had no issues with catheter clogging over night, and the nurses did not need to irrigate the . He was still experiencing some pelvic/perineal discomfort, but he felt it was manageable with the B&O suppositories and the Tylenol #3. Exam: well appearing, lying in bed, in NAD Catheter in place and draining light pink/siva colored urine on slow drip CBI. Bladder irrigation Procedure Note: Using sterile water this time, I irrigated the bladder aggressively with ~400cc, and no significant clots were present. The catheter irrigated easily and without issue. As such, I left the catheter to gravity drainage this time and observed. The urine became darker, port wine colored, but was draining adequately without thickness to cause clots at this time. Plan: Leave catheter to gravity and off CBI for now. I demonstrated the current color and character of the urine to his nurse and explained that if the urine became thick with blood or the catheter became obstructed, she might irrigate it with 60-120cc NS or sterile water to remove the clog, but otherwise, we will forgo resuming CBI unless the frequency of irrigation needs makes that a necessity. Should his urine remain sufficiently free of clots to allow discharge today, we will arrange that this evening. Likely, we will require repeat operative evaluation to assess for a missed bleeding vessel within the bladder or prostate and perhaps completion TURP on Saturday. -PSA pending as a send out test in the EMR. I explained this was necessary to assess the potential for prostate cancer underlying his presumptive prostatic urethral hematuria and outlet obstruction.
[2020-12-25] MEDS ORDERED: D5 0.9 NS 1,000 ML IV SCH (13:52)
[2020-12-25] MEDS ORDERED: ALPRAZOLAM 0.25 MG TABLET PO ONE (17:07)
[2020-12-26] MEDS: ALPRAZOLAM 0.25 MG TABLET PO PRN (00:43)
[2020-12-26 06:13] LABS: Magnesium 2.1 mg/dL (1.8-2.4); Potassium 4.1 mmol/L (3.5-5.1)
--- NOTE | 2020-12-26 06:44 | PN ---
Date of Progress Note: 12/25/2020 Subjective: The patient was seen for followup in the morning. He had emergency TURP surgery done ye sterday by Dr. Camargo for ongoing gross hematuria problem and when I saw him today, he still had a c atheter with continuous bladder irrigation. Still has gross hematuria, but it is better compared to yesterday. Denies any abdominal pain, nausea, vomiting. Objective: Vital Signs: Reviewed. HEENT: Examination unremarkable. Lungs: Clear to auscultation. Cardiac: Heart sounds normal. Abdomen: Soft, bowel sounds normal. No guarding, rigidity, tenderness, distention. Extremities: No leg edema. SCD present. Laboratory Data: White count 10.6, hemoglobin 10.1, platelets 197. Chemistry unremarkable except gl ucose 138. Urine culture has remained negative so far. Impression: 1.Gross hematuria. 2.Benign prostatic hypertrophy. 3.Left-sided hydronephrosis, chronic. 4.Acute blood loss anemia. Plan: The patient's hemoglobin was about 10.1 and this is due to acute blood loss anemia from this g ross hematuria. There is no need for any blood transfusion so far. We will monitor his blood and fo llow up with Dr. Camargo. I will see him tomorrow for followup. We will continue current empiric an tibiotics. He is now on oral Bactrim. Possible discharge to go home tomorrow. Today, he was having some anxiety problem and 1 dose of alprazolam was ordered in the afternoon and second dose will be given a t nighttime as needed. GAIL/MODL Voice ID: [id number] Report ID: [id number]
[2020-12-26] MEDS: OPIUM/BELLADONNA SUPPOS (30-16.2 MG) PR SCH ×2 (08:52→21:15)
[2020-12-26] MEDS: FAMOTIDINE 20 MG/2 ML VIAL IV SCH ×2 (08:52→21:15)
[2020-12-26] MEDS: SMZ./TMP. 800/160 MG TABLET PO SCH ×2 (08:52→21:15)
[2020-12-26 10:24] LABS: Basophils % 0.4 % (0-1.3); Hematocrit 26.9 % (39.6-49.0); Lymphocytes % 12.4 % (15.3-44.8); MPV 7.3 fL (7.6-11.3); RBC Red Blood Cell Count 2.89 M/uL (4.33-5.43)
--- NOTE | 2020-12-26 12:41 | P.PN ---
Subjective Date of Service: 12/26/20 Chief Complaint: persistent gross hematuria Subjective: No new changes, Improving Occasional spasm discomfort radiating to the tip of the penis. Physical Examination - Vital Signs Temperature: 98.8 F Blood Pressure: 142/69 Pulse: 88 Respirations: 18 Pulse Ox (%): 98 - Physical Exam General: Alert, In no apparent distress Other Physical/Emotional Findings: Off CBI now for >18 hours with few small but insignificant clots observed when irrigated by nurses twice since yesterday evening 8PM. CBI infusion port capped, and urine very light pink but completely translucent. Last manual irrigation performed around 7AM with shift change. Assessment And Plan - Current Problems (Diagnosis) (1) Gross hematuria Current Visit: Yes Status: Acute (2) Urinary retention Onset Date: 11/18/15 Current Visit: No Status: Acute - Plan 80-year-old gentleman with no known significant past medical history, who underwent GreenLight photovaporization of his prostate by Dr. Tran years ago complicated by bleeding at the time of thatprocedure, now with intermittent gross hematuria, clot retention, persistent obstructive lower urinary tract symptoms due to benign prostatic hypertrophy, and large volume incomplete emptying of his bladder associated with left-sided hydronephrosis and no upper tract urothelial lesions seen on imaging or bladder tumor on outpatient cystoscopy p cysto clot evacuation, left retrograde pyelography and attempted stent placement, followed by bipolar TURP and prostatic urethra fulguration now 24 hours off CBI with urine very light pink to clear. - recommend repeat operative assessment and fulguration tomorrow - NPO p MN
[2020-12-26] MEDS: D5 0.9 NS 1,000 ML IV SCH (21:22)
--- NOTE | 2020-12-27 02:24 | PN ---
Date of Progress Note: 12/26/2020 Subjective: No new complaints or problems reported by patient, lying in bed, not in distress. He zambrano d his catheter present this morning with gross hematuria, which was more prominent this morning than yesterday. Denies any abdominal pain, nausea, vomiting. Objective: Vital Signs: Reviewed. HEENT: Examination unremarkable. Lungs: Clear to auscultation. Heart: Sounds normal. Abdomen: Soft. Bowel sounds normal. No guarding, rigidity, tenderness, or distention. Extremities: No leg edema. Presence of SCD over both legs. Impression: 1.Gross hematuria. 2.Benign prostatic hypertrophy with lower urinary tract symptoms. 3.Acute blood loss anemia. Plan: We will continue SCD for DVT prophylaxis. Details were discussed with to take patient to operating room tomorrow for repeat surgery considering persistent hematuria and we will co ntinue oral antibiotics. We will keep the patient n.p.o. after midnight. GAIL/MODL Voice ID: [id number] Report ID: [id number]
[2020-12-27] MEDS: D5 0.9 NS 1,000 ML IV SCH ×3 (07:27→23:23)
[2020-12-27] MEDS: OPIUM/BELLADONNA SUPPOS (30-16.2 MG) PR SCH ×2 (08:18→21:23)
[2020-12-27] MEDS: SMZ./TMP. 800/160 MG TABLET PO SCH ×2 (08:18→21:24)
[2020-12-27] MEDS: FAMOTIDINE 20 MG/2 ML VIAL IV SCH ×2 (08:18→21:23)
[2020-12-27 09:34] LABS: Hematocrit 27.1 % (39.6-49.0); MPV 7.1 fL (7.6-11.3); RBC Red Blood Cell Count 2.93 M/uL (4.33-5.43)
[2020-12-27] MEDS ORDERED: Ringers Lactate 1,000 ML IV ONE (10:47)
[2020-12-27] MEDS ORDERED: propofoL 200 MG/20 ML VIAL IV ONE (11:21)
[2020-12-27] MEDS ORDERED: FENTANYL CITR 100 MCG/2 ML ONE ×2 (11:21→13:24)
[2020-12-27] MEDS ORDERED: LIDOCAINE 1% MPF 5 ML VIAL ONE (11:21)
[2020-12-27] MEDS ORDERED: KETOROLAC 30 MG/ML INJ ONE (12:41)
[2020-12-27] MEDS ORDERED: ONDANSETRON 4 MG/2 ML VIAL ONE (12:42)
[2020-12-27] MEDS ORDERED: EPHEDRINE SULF 50 MG/ML VIAL ONE (12:59)
[2020-12-27] MEDS ORDERED: NS 0.9% VIAL 10 ML ONE (12:59)
[2020-12-27] MEDS ORDERED: FUROSEMIDE 20 MG/ 2ML VIAL ONE (13:43)
[2020-12-27] MEDS ORDERED: NA CHLORIDE 0.9% 1,000 ML ONE (13:48)
[2020-12-27 14:44] LABS: Absolute Lymphocytes (CBC) 0.8 K/uL (0.7-4.9); Basophils % 0.5 % (0-1.3); Hematocrit 28.3 % (39.6-49.0); Lymphocytes % 13.1 % (15.3-44.8); MPV 7.3 fL (7.6-11.3); RBC Red Blood Cell Count 3.01 M/uL (4.33-5.43)
[2020-12-27 14:59] LABS: Potassium 3.8 mmol/L (3.5-5.1)
[2020-12-27] MEDS ORDERED: FERROUS GLUCONATE 324 MG TAB PO SCH (17:00)
[2020-12-27] MEDS: FOLIC ACID 1 MG TABLET PO SCH (17:05)
[2020-12-27] MEDS: MULTIVITAMIN TAB PO SCH (17:05)
[2020-12-27] MEDS: FINASTERIDE 5 MG TAB PO SCH (17:05)
[2020-12-27] MEDS: FERROUS GLUCONATE 324 MG TAB PO SCH (17:06)
--- NOTE | 2020-12-27 19:51 | OP ---
Surgeon: TARUN DELVALLE Preoperative Diagnoses: 1.Refractory gross hematuria. 2.Clot urinary retention. 3.Benign prostatic hypertrophy with lower urinary tract obstruction. 4.Left hydronephrosis. Postoperative Diagnoses: 1.Refractory gross hematuria. 2.Clot urinary retention. 3.Benign prostatic hypertrophy with lower urinary tract obstruction. 4.Left hydronephrosis. 5.Prostatic urethral bleeding. Principal Procedures: 1.Cystoscopy and fulguration. 2.Transurethral resection of the prostate, completion with fulguration. 3.Cystoscopy and clot evacuation. Indication For Procedure: Mr. Vazquez presented to the hospital last Saturday with gross hematuria vi a the emergency department. He was admitted and manually irrigated with a urethral catheter pl aced before being placed on CBI. Despite some improvement, he continued to have a decline in his hem atocrit and thus was taken to the operating room on Saturday for clot evacuation and fulguration wher e since no bladder bleeding source was noted, resection of the obstructive component of the prostate was performed in an effort to control some of the bleeding thought to be coming from the prostate. H e had continued improvement thereafter, eventually being able to stop continuous bladder irrigation a nd only requiring occasional intermittent manual irrigation where no significant clots were noted, bu t he continued to have slow bleeding. While his hematocrit stabilized, the bleeding continued; thus I recommended repeat operative evaluation. Procedure In Detail: The patient was consented in the preoperative holding area before being transfe rred to the operative suite where general anesthesia was induced. He was taking Bactrim after severa l days of ceftriaxone IV antimicrobial prophylaxis. Pneumo boots were provided for DVT prophylaxis. The last dose of Bactrim was around 8 o'clock this morning. The case went around 1 o'clock in the a fternoon. He was placed in the lithotomy position, padded and secured to the table appropriately. H is genitalia were prepped using Hibiclens and draped in standard fashion. The case was begun using t 26-Portuguese monopolar resectoscope to traverse the urethra using a visual obturator and into the evelio dder. Again, there was significant intravesical clot burden, which required Ellik evacuation to jes ve. Once the clots were removed, I then surveyed the bladder in its entirety. The ureteral orifices remained in their previously observed position without evidence of injury or fulguration from the pr ior procedure. The remainder of the bladder was free of any suspicious papillary mucosal lesion, for eign body, or stone. There was evidence of mucosal edema from the catheterization and continuous evelio dder irrigation that he had undergone for the last week. I then assessed the prostatic urethra where significant formed clot was again noted. Using the monopolar loop, I was able to brush and alternat charleen resect the clot away revealing a base with ongoing continuous oozing of blood. As such, I worked to remove all of the clot from within the prostatic urethra taking care to fulgurate the base carefu lly along the way. Where there were areas of ongoing bleeding due to overlap of BPH, additional rese ction was performed. Additionally, near the apex of the prostate where there was significant lateral lobar ingression into the prostatic urethra causing obstruction, additional resection was performed. With each period of resection, additional extensive fulguration was performed along the entirety of the prostatic fossa and at the bladder neck. Despite this however, the patient evidenced ongoing ef forts to slowly moves from the site. They were thus fulgurated again with occasional additional rese ction in order to ensure the discrete vessel tip was found, and despite this and all of the additiona l fulguration, there was sometimes persistent oozing. As such, I continued to work to carefully fulg urate each and every component of the prostatic fossa until complete hemostasis was achieved with the bladder decompressed and no irrigant fluid going in. I again surveyed the bladder in its entirety, and again, no concerning mucosal lesions were visualized. Thus, I backed the scope to the level of t he verumontanum and carefully fulgurated any oozing vessels from the trauma of passing the scope repe titively beyond that point. In the end, with his bladder left partially full and the irrigant fluid turned off with no pressure within the bladder and confirming no ongoing bleeding, I then with fractu red cystoscope and placed a 24-Portuguese 3-way catheter into his bladder with ease. A [address] erile water was placed into the balloon, and the patient was taken out of the lithotomy position. Th e catheter was then placed a moderate traction, and he was awakened from general anesthesia. He was then transferred to a stretcher and to the recovery room with a slow drip CBI and the urine only mini rodriguez pink. Of note, at the conclusion of the procedure, the urine was crystal clear. This was conf irmed by manual irrigation using a 60 mL catheter tip syringe. Complications: None. Discharge Disposition: I have some concerns the patient may have a bleeding disorder since the areas of bleeding were within the prostatic urethra, which had been adequately managed on the first fulgur ation and resection and yet persisted to bleed despite additional efforts of fulguration today. This is consistent with the experience previously had according to the patient by his prior urologist, Dr Manuel Tran. As such, I think he would benefit from a hematologic evaluation of his bleeding pote ntial, which is suggested by his slightly elevated INR of 1.27 done in preoperative evaluation. Othe rwise, he will keep the urethral catheter for the next 3-5 days and undergo a voiding trial in the office. I will continue the Bactrim antimicrobial prophylaxis until 24 hours after the catheter is removed. We also would recommend finasteride on discharge, which can help with some of the neovas cularization and decrease some of the bleeding. Subsequent followup can be established in 3-5 days i n the [facility] with nurse practitioner, Lulú for a voiding trial. He may then follow up wi th me thereafter to discuss the results of the pathology of the resections performed on this hospital ization. He would also be encouraged to take iron, a multivitamin, and folate for his anemia. CRISTINO/MODL Voice ID: [id number] Report ID: [id number]
[2020-12-27] MEDS: ALPRAZOLAM 0.25 MG TABLET PO PRN (21:23)
[2020-12-28 02:27] VITALS: O2SAT 95
[2020-12-28] MEDS: ACETAMINOPHEN 325 MG TABLET PO PRN (04:13)
[2020-12-28] MEDS: D5 0.9 NS 1,000 ML IV SCH (06:31)
[2020-12-28 08:30] VITALS: BP 123/58; TEMP 98.3
[2020-12-28] MEDS: FAMOTIDINE 20 MG/2 ML VIAL IV SCH (08:37)
[2020-12-28] MEDS: MULTIVITAMIN TAB PO SCH (08:37)
[2020-12-28] MEDS: FERROUS GLUCONATE 324 MG TAB PO SCH (08:37)
[2020-12-28] MEDS: OPIUM/BELLADONNA SUPPOS (30-16.2 MG) PR SCH (08:37)
[2020-12-28] MEDS: FINASTERIDE 5 MG TAB PO SCH (08:37)
[2020-12-28] MEDS: SMZ./TMP. 800/160 MG TABLET PO SCH (08:37)
[2020-12-28] MEDS: FOLIC ACID 1 MG TABLET PO SCH (08:37)
[2020-12-28] MEDS ORDERED: MULTIVITAMIN TAB PO SCH (09:00)
[2020-12-28] MEDS ORDERED: FOLIC ACID 1 MG TABLET PO SCH (09:00)
--- NOTE | 2020-12-29 06:28 | PN ---
Date of Progress Note: 12/27/2020 Subjective: The patient was seen for followup. No new complaints or problems reported. Lying in be d, not in distress. No chest pain or shortness of breath. No nausea or vomiting. Objective: Vital Signs: Reviewed. HEENT: Examination unremarkable. Lungs: Clear to auscultation. Heart: Sounds normal. Abdomen: Soft, bowel sounds normal. No guarding, rigidity, tenderness, or distention. Extremities: No leg edema. Impression: 1.Gross hematuria. 2.Benign prostatic hypertrophy with lower urinary tract symptoms. 3.Acute blood loss anemia. 4.Left-sided hydronephrosis, chronic. Plan: So far, urine culture has remained negative. We will continue current oral antibiotics. The p atient has gross hematuria which is improving after the surgery. catheter is in place. There is no evidence of any obstruction in the catheter. We will continue to follow with urologist. Possible discharge either today or tomorrow. Details were discussed with the patient. Ambulation w as encouraged. The patient has SCD present for DVT prophylaxis. GAIL/MODL Voice ID: [id number] Report ID: [id number]
--- NOTE | 2020-12-29 08:07 | DS ---
Date of Discharge: 12/28/2020 Disposition: Discharged to go home. Physical Examination: HEENT: Unremarkable. LUNGS: Clear to auscultation. HEART: Sounds normal. ABDOMEN: Soft. Bowel sounds normal. No guarding, rigidity, tenderness, distention. EXTREMITIES: No leg edema. The patient does have a catheter present and urine appears signifi cantly better. It is more like brownish colored now and not pinkish color. Laboratory Data: Upon admission: White count was 9.5, hemoglobin 15.3, platelets 151. Last CBC on 12/25/2020: White count 10.6, hemoglobin 10.1, platelets 190. Initial chemistry: Sodium 132, potas sium 3.9, chloride 98, bicarb 22, BUN 13, creatinine 0.83, glucose 87. Liver function tests unremark able. Lipase 77. Last chemistry from yesterday: Sodium 143, potassium 4.1, chloride 114, bicarb 25 , BUN 12, creatinine 0.84, glucose 87, magnesium 2.1. Urine culture did not grow any specific bacter ia. Final Diagnoses: 1.Gross hematuria. 2.Acute blood loss anemia. 3.Benign prostatic hypertrophy with lower urinary tract symptoms. 4.Chronic left-sided hydronephrosis. 5.Gastroesophageal reflux disease. 6.Lumbar spondylosis. Hospital Course: This ia an 80-year-old pleasant male. Patient admitted to the hospital with gross hematuria. Please see dictated H and P for more information. The patient was evaluated in the emerg ency room. He was admitted to the hospital and had a catheter placed and then bladder irrigati on was started. Urologist, Dr. Camargo, was consulted, and the patient had continuous bladder irriga tion and empiric antibiotics were started. With conservative treatment, his gross hematuria did not get resolved, so Dr. Camargo took him to surgery over the weekend in form of transurethral resection of prostate. He was not able to put a stent in the left ureter. He is planning to do percutaneous n ephrostomy tube on elective outpatient basis. After his surgery, his gross hematuria slowly improved . The patient did have acute blood loss anemia, but did not require any blood transfusion. SCD was provided for DVT prophylaxis. The patient was discharged to go home in stable condition with c atheter in place and nursing staff was advised to instruct the patient regarding how to flush his Fol ey catheter on a p.r.n. basis for any pain in the bladder region or if he feels like his cathet er is blocked and not draining urine. The patient to follow up with Dr. Camargo this week on Saturday and follow up at my office next week on Saturday or Saturday per instruction. Discharge Medications: 1.Stop tamsulosin. 2.Continue finasteride 5 mg daily. 3.Start Ferrocite 1 tablet by mouth daily. 4.Bactrim DS 1 tablet by mouth 2 times a day. The patient was instructed that he should discontinue his antibiotic 24 hours after catheter ge ts removed, and very likely Dr. Camargo office will remove catheter this week on Saturday when he sees him. GAIL/MODL Voice ID: [id number] Report ID: [id number]
== END 2020-12-28 09:30 | disposition home or self-care (01) | DRG 654 ==
LOC: ER 17:45 → ERHOLD 20:51 → 2ND 12-21 15:23 → OBSVTOIN 12-22 07:06
PROVIDERS: ADMIT Internal Medicine; ATTEND Internal Medicine
PROC: BT1FYZZ Fluoroscopy of Left Kidney, Ureter and Bladder using Other Contrast (ICD-10-PCS; 2020-12-24)
PROC: 0T7B8DZ Dilation of Bladder with Intraluminal Device, Via Natural or Artificial Opening Endoscopic (ICD-10-PCS; 2020-12-24)
PROC: 0TCB8ZZ Extirpation of Matter from Bladder, Via Natural or Artificial Opening Endoscopic (ICD-10-PCS; 2020-12-24)
PROC: 0VB08ZZ Excision of Prostate, Via Natural or Artificial Opening Endoscopic (ICD-10-PCS; principal; 2020-12-24 18:30)
PROC: 0VT08ZZ Resection of Prostate, Via Natural or Artificial Opening Endoscopic (ICD-10-PCS; 2020-12-27)
PROC: 0TCB8ZZ Extirpation of Matter from Bladder, Via Natural or Artificial Opening Endoscopic (ICD-10-PCS; 2020-12-27)
DX: R31.0 Gross hematuria (principal); D62 Acute posthemorrhagic anemia; N40.1 Benign prostatic hyperplasia with lower urinary tract symptoms; N13.8 Other obstructive and reflux uropathy; R39.14 Feeling of incomplete bladder emptying; N13.30 Unspecified hydronephrosis; K21.9 Gastro-esophageal reflux disease without esophagitis; M47.896 Other spondylosis, lumbar region; N13.1 Hydronephrosis with ureteral stricture, not elsewhere classified; Z20.822 Contact with and (suspected) exposure to COVID-19; Z86.16 Personal history of COVID-19
CPT/HCPCS: 36415; 51610; 74450; 80048; 80076; 81015; 83690; 83735; 85014; 85018; 85025; 85027; 86850; 86900; 86901; 87086; 87088; 88305; 93005; 96374; 99285; G0378; J0696; J1100; J1170; J1940; J2250; J2370; J2405; J2704; J3010; J7030; J7042; J7120; P9045; U0003